=== PATIENT | female | born 1995 | race Hispanic/Latino ===

== ENCOUNTER 2017-06-08 21:28 | Emergency (ER) | payer SELFPAY ==
[~2017-06-08] VITALS: Ht 152.4 cm; Wt 70.3 kg
[2017-06-08 23:13] LABS: HEMATOCRIT 30.7 % (36.0-46.0); MCH 30.5 PG (29.0-34.0); MCHC 34.5 G/DL (30.0-36.0); MCV 88.5 FL (83-99); MEAN PLAT.VOLUME 9.2 uM^3 (9.5-12.4); PLATELET COUNT 318 K/uL (156-360); RBC DIS.WIDTH-SD 42.3 % (39-53); RED BLOOD COUNT 3.47 M/uL (3.80-5.20); WHITE BLOOD COUNT 9.2 K/uL (4.1-10.2)
[2017-06-09 00:28] LABS: ADD MIUA? YES; BILIRUBIN NEGATIVE; BLOOD NEGATIVE; COLOR YELLOW ((YELLOW)); GLUCOSE (STRIP) NEGATIVE; KETONES NEGATIVE; LEUKOCYTES TRACE; NITRITE NEGATIVE; PROTEIN (STRIP) NEGATIVE; SPECIFIC GRAVITY 1.009 (1.000-1.030); UROBILINOGEN 0.2 MG/DL (0.2-1.0)
[2017-06-09 00:32] LABS: BACTERIA RARE /HPF; EPITHELIAL CELLS 1+ /HPF; MUCUS TRACE /LPF; RED BLOOD CELLS 0-5 /HPF (0-5); UCUL ADDED? NO; WHITE BLOOD CELLS 0-5 /HPF (0-5)
[2017-06-09] MEDS ORDERED: ZOFRAN4 MG PO (01:24)
[2017-06-09] MEDS ORDERED: COLACE100 MG PO (01:24)
[2017-06-09 02:04] VITALS: BP 128/72
== END 2017-06-09 02:05 | disposition home or self-care (01) ==
LOC: EME 21:28 → EDBD 21:28 → EME 06-09 02:05
DX: O26.892 Other specified pregnancy related conditions, second trimester (principal); R10.30 Lower abdominal pain, unspecified; O21.9 Vomiting of pregnancy, unspecified; Z3A.19 19 weeks gestation of pregnancy
CPT/HCPCS: 76805; 81003; 85027; 86900; 86901; 99281; 99283

== ENCOUNTER → 2017-07-31 | Outpatient (CLI) | payer SELFPAY ==
[~2017-07-31] MED LIST: COLACE100 MG PO; ZOFRAN4 MG PO
== END | disposition home or self-care (01) ==
LOC: RAD 13:22
DX: Z3A.28 28 weeks gestation of pregnancy (principal)
CPT/HCPCS: 76811

== ENCOUNTER 2017-10-07 23:43 | Inpatient (IN) | payer OTHER ==
[~2017-10-07] VITALS: Ht 149.9 cm; Wt 76.8 kg
[2017-10-08] VITALS (10 sets, daily range): BP systolic 92–116; BP diastolic 53–69
[2017-10-08 08:18] LABS: BASOPHIL (%) 0.2 % (0-1); EOSINOPHIL (%) 2.4 % (0-5); EOSINOPHIL COUNT 0.2 K/uL (0-0.3); IMMATURE GRANULOCYTE (%) 0.6 % (0.0-0.7); LYMPHOCYTE (%) 22.8 % (15-42); LYMPHOCYTE COUNT 1.9 K/uL (1.0-2.8); MCH 30.1 PG (29.0-34.0); MCHC 33.3 G/DL (30.0-36.0); MCV 90.4 FL (83-99); MONOCYTE COUNT 0.8 K/uL (0-0.8); NEUTROPHIL COUNT 5.5 K/uL (1.8-6.4); PLATELET COUNT 245 K/uL (156-360); RBC DIS.WIDTH-CV 13.7 % (11.8-14.6); RBC DIS.WIDTH-SD 44.9 % (39-53); RED BLOOD COUNT 3.32 M/uL (3.80-5.20); WHITE BLOOD COUNT 8.4 K/uL (4.1-10.2)
[2017-10-09 06:26] LABS: BASOPHIL (%) 0.1 % (0-1); EOSINOPHIL (%) 0.2 % (0-5); HEMATOCRIT 25.7 % (36.0-46.0); HEMOGLOBIN 8.8 G/DL (11.9-15.5); IMMATURE GRANULOCYTE (%) 0.5 % (0.0-0.7); LYMPHOCYTE COUNT 1.9 K/uL (1.0-2.8); MCH 30.8 PG (29.0-34.0); MCHC 34.2 G/DL (30.0-36.0); MCV 89.9 FL (83-99); MONOCYTE (%) 9.2 % (3-12); MONOCYTE COUNT 1.2 K/uL (0-0.8); NEUTROPHIL COUNT 9.5 K/uL (1.8-6.4); PLATELET COUNT 215 K/uL (156-360); RBC DIS.WIDTH-CV 13.2 % (11.8-14.6); RBC DIS.WIDTH-SD 43.1 % (39-53); RED BLOOD COUNT 2.86 M/uL (3.80-5.20); WHITE BLOOD COUNT 12.6 K/uL (4.1-10.2)
[2017-10-10 07:41] VITALS: BP 105/64
[2017-10-10 10:44] VITALS: BP 108/63
[2017-10-10 15:24] VITALS: BP 106/56
[2017-10-11] MEDS ORDERED: FERROUS SULFAT325 MG PO (09:54)
[2017-10-11] MEDS ORDERED: IBUPROFEN800 MG PO (09:54)
[2017-10-11] MEDS ORDERED: ENDOCET 5-3251 EACH PO (09:54)
== END 2017-10-11 14:52 | disposition home or self-care (01) | DRG 765 ==
LOC: LDRP-OP → 2WEST 23:44 → LDRP-OP 11-21 13:16
PROVIDERS: Advanced Practice Midwife; Obstetrics & Gynecology
PROC: 10D00Z1 Extraction of Products of Conception, Low, Open Approach (ICD-10-PCS; principal; 2017-10-08)
DX: O76 Abnormality in fetal heart rate and rhythm complicating labor and delivery (principal); D62 Acute posthemorrhagic anemia; O34.211 Maternal care for low transverse scar from previous cesarean delivery; O69.81X0 Labor and delivery complicated by cord around neck, without compression, not applicable or unspecified; O99.02 Anemia complicating childbirth; D50.9 Iron deficiency anemia, unspecified; M79.661 Pain in right lower leg; O99.214 Obesity complicating childbirth; E66.9 Obesity, unspecified; Z68.29 Body mass index [BMI] 29.0-29.9, adult; Z3A.38 38 weeks gestation of pregnancy; Z37.0 Single live birth
CPT/HCPCS: 76818; 85025; 86850; 86900; 86901; 88307; 90686; 93971; G0378; J0690; J1100; J1170; J1885; J2274; J2405; J3010; J7120